=== PATIENT | female | born 1950 | race Caucasian/White ===

== ENCOUNTER 2020-04-28 09:11 | Outpatient (CLI) | payer MEDICARE, MEDICAID, SELFPAY ==
--- NOTE | ~2020-04-28 | PE_ITS ---
EXAMINATION: PET skull to mid thigh DATE: 04/28/2020 11:26 INDICATION: Pulmonary nodule TECHNIQUE: Blood glucose level was 96 mg/dL. 10.24 mCi of 18-fluorodeoxyglucose (18-FDG) was administ ered i.v. Low dose computed tomography (CT) images were acquired from the base of the brain to the pr oximal thighs for attenuation correction and anatomic localization. Positron emission tomography (PET ) images were acquired in the same distribution beginning 57 minutes after injection. The dose-length product (DLP) was 427.86 mGy-cm. COMPARISON: None FINDINGS: Head/neck: There is FDG uptake in the oral cavity and right vocal cord without suspicious CT correlat e. There is mild irregularity of the epiglottis with abnormal FDG uptake and SUV max of 10.5. No defi nite abnormal FDG uptake is identified. Chest: There is a 1.6 x 1.0 cm nodule in the medial aspect of the right upper lobe with abnormal FDG uptake and SUV max of 9.6. There is a 2.5 x 2.0 cm right suprahilar nodule with abnormal FDG uptake a nd SUV max of 15.6. There is bilateral hilar, right paratracheal, precarinal, subcarinal, right axill george, and right supraclavicular lymphadenopathy with abnormal FDG uptake. An approximately 6.3 x 2.0 c m mass of confluent subcarinal and left hilar lymph nodes is seen with an SUV max of 27 there is mild emphysema. There is no pleural effusion or pneumothorax. The heart size is normal. Abdomen/pelvis/proximal thighs: There is a 2.1 cm area of abnormal FDG uptake in the liver adjacent t o the gallbladder fossa with an SUV max of 6.0. Although no definite CT correlate is identified, this is a suspicious finding. Physiologic FDG activity is present in the bowel and urinary tract. The spl een, pancreas, gallbladder, and adrenal glands are normal. The kidneys are unremarkable. There is pratik cified atherosclerosis of the aorta and many of the other arteries. No pathologically enlarged abdomi nal or pelvic lymph nodes are identified. There is no free intraperitoneal gas or evidence of bowel o bstruction. Musculoskeletal: There is moderate cervical spondylosis, severe lumbar spondylosis, and mild thoracic spondylosis. No abnormal FDG uptake is identified. IMPRESSION: 1. Right suprahilar nodule with abnormal FDG uptake concerning for primary bronchogenic carcinoma. 2. Thoracic lymphadenopathy (detailed above), additional right upper lobe nodule, and FDG avid liver lesion are concerning for metastatic disease. 3. Mild irregularity of the epiglottis with abnormal FDG uptake of unclear significance. Would recomm end direct visualization. In addition would recommend visualization of the vocal cords as asymmetric FDG uptake is noted in the right vocal cord without definite CT correlate. Reviewed, dictated and finalized at location A. DYEING TENDER IMPRESSION: 1. Right suprahilar nodule with abnormal FDG uptake concerning for primary bron chogenic carcinoma. 2. Thoracic lymphadenopathy (detailed above), additional right upper lobe nodul e, and FDG avid liver lesion are concerning for metastatic disease. 3. Mild irregularity of the epiglottis with abnormal FDG uptake of unclear sign ificance. Would recommend direct visualization. In addition would recommend vis ualization of the vocal cords as asymmetric FDG uptake is noted in the right vo pratik cord without definite CT correlate.
[2020-04-28 09:32] LABS: Glucose Point of Care 96 (65-105)
== END 2020-04-28 09:12 | disposition home or self-care (01) ==
PROVIDERS: PCP Internal Medicine; Visit Provider Thoracic Surgery (Cardiothoracic Vascular Surgery)
DX: R91.1 Solitary pulmonary nodule (principal); R59.0 Localized enlarged lymph nodes; R91.8 Other nonspecific abnormal finding of lung field
CPT/HCPCS: 78815; 82948; A9552

== ENCOUNTER 2020-05-19 10:02 | Outpatient (CLI) | payer MEDICARE, MEDICAID, SELFPAY ==
--- NOTE | ~2020-05-19 | US_ITS ---
EXAMINATION: US biopsy lymph node DATE: 05/19/2020 11:38 INDICATION: Right supraclavicular lymphadenopathy. TECHNIQUE: The procedure including the risks, benefits, and alternatives was discussed with the patie nt. Risks discussed included bleeding and infection. The patient understood the risks and agreed to p roceed. The skin overlying the right supraclavicular region was prepped and draped in usual sterile f ashion. Anesthetic was administered with 1% lidocaine subcutaneously. An 18 gauge core biopsy needl e was then used to obtain 3 core biopsy specimens under continuous sonographic guidance. The entry si te was cleaned and dressed. There were no immediate complications. FINDINGS: Ultrasound images demonstrate the needle in a 10 x 14 mm right supraclavicular lymph node. IMPRESSION: 1. Ultrasound-guided core needle biopsy of a mildly enlarged right supraclavicular lymph node. Reviewed, dictated and finalized at location A. CE HELPER IMPRESSION: 1. Ultrasound-guided core needle biopsy of a mildly enlarged right supraclavicu lar lymph node.
== END 2020-05-19 10:03 | disposition home or self-care (01) ==
PROVIDERS: PCP Internal Medicine; Visit Provider Thoracic Surgery (Cardiothoracic Vascular Surgery)
DX: C77.0 Secondary and unspecified malignant neoplasm of lymph nodes of head, face and neck (principal)
CPT/HCPCS: 38505; 76942; 88305; 88342

== ENCOUNTER 2020-05-26 14:27 | Outpatient (CLI) | payer MEDICARE, MEDICAID, SELFPAY ==
--- NOTE | ~2020-05-26 | CT_ITS ---
EXAMINATION: CT soft tissue neck w con DATE: 05/26/2020 14:59 INDICATION: Squamous cell carcinoma of the epiglottis. TECHNIQUE: Computed tomography (CT) of the neck was performed with 75 mL Omnipaque-350 intravenous co ntrast. Automated exposure control and iterative reconstruction technique were employed. The dose-yvonne gth product was 460.51 mGy-cm. COMPARISON: PET CT 04/28/2020 FINDINGS: There is mild scarring at the lung apices. There is moderate emphysema. There is an 11 mm n odule in right lung upper lobe. There is right hilar lymphadenopathy measuring 2.4 x 1.9 cm. Mediasti nal lymphadenopathy is noted. There is right supraclavicular lymphadenopathy. There is thickening of the epiglottis. There are nodules in the thyroid measuring up to 13 mm, likely not clinically signifi cant. There is plaque in the proximal internal carotid arteries with 0% stenosis relative to normal a rtery lumen diameters. There is severe cervical spondylosis. The mastoid air cells are normal. There is a 3.6 x 1.4 cm mass of dense peripheral calcifications and central groundglass calcifications in t he frontal sinuses, likely fibrous dysplasia. IMPRESSION: 1. Thickening of the epiglottis with increased activity on the prior PET/CT suspicious for primary sq uamous cell carcinoma. 2. Nodule in right lung upper lobe, consistent with primary bronchogenic carcinoma versus metastatic disease. 3. Right hilar, mediastinal, and right supraclavicular lymphadenopathy, consistent with metastatic di sease. Biopsy of a right supraclavicular lymph node on 05/19/2020 demonstrated metastatic squamous rafi l carcinoma. Reviewed, dictated and finalized at location A. IMPRESSION: 1. Thickening of the epiglottis with increased activity on the prior PET/CT cha picious for primary squamous cell carcinoma. 2. Nodule in right lung upper lobe, consistent with primary bronchogenic carcin jen versus metastatic disease. 3. Right hilar, mediastinal, and right supraclavicular lymphadenopathy, consist ent with metastatic disease. Biopsy of a right supraclavicular lymph node on 01/2021 demonstrated metastatic squamous cell carcinoma.
[2020-05-26 14:52] LABS: Estimated Glomerular Filt Rate > 60
== END 2020-05-26 14:28 | disposition home or self-care (01) ==
DX: C32.1 Malignant neoplasm of supraglottis (principal)
CPT/HCPCS: 70491; Q9967

== ENCOUNTER 2020-05-28 10:30 | Outpatient (CLI) | payer MEDICARE, MEDICAID, SELFPAY ==
[2020-05-28 10:52] LABS: Basophils Absolute Auto 0.05 K/mm3 (0.00-0.10); Basophils Percent Auto 0.7 % (0.0-1.0); Eosinophils Absolute Auto 0.27 K/mm3 (0.02-0.50); Eosinophils Percent Auto 3.8 % (1.0-6.0); Hematocrit 42.1 % (35.0-42.0); Hemoglobin 14.2 g/dL (11.7-13.8); Immature Granulocyte Absolute 0.02 K/mm3 (0.00-0.00); Immature Granulocyte Percent A 0.3 % (0.0-0.0); Lymphocytes Absolute Auto 1.54 K/mm3 (1.10-4.50); Lymphocytes Percent Auto 21.9 % (18.0-42.0); Mean Corpuscular HGB Conc 33.7 g/dL (32.0-36.0); Mean Corpuscular Hemoglobin 30.2 pg (27.0-31.0); Mean Corpuscular Volume 89.6 fL (78.0-102.0); Mean Platelet Volume 11.1 fl (9.2-11.8); Monocytes Absolute Auto 0.55 K/mm3 (0.10-0.90); Monocytes Percent Auto 7.8 % (2.0-11.0); Neutrophils Absolute Auto 4.6 K/mm3 (1.7-7.2); Neutrophils Percent Auto 65.5 % (50.0-70.0); Platelet Count Result 246 K/mm3 (150-420); Red Cell Distribution Width 12.9 % (11.6-14.4)
[2020-05-28 11:49] LABS: Alanine Aminotransferase 28 U/L (14-59); Albumin Level 3.7 g/dL (3.4-5.0); Alkaline Phosphatase 83 U/L (46-116); Anion Gap 11 mmol/L (8-16); Aspartate Amino Transferase 20 U/L (15-37); Bilirubin,Total 0.4 mg/dL (0.00-1.00); Blood Urea Nitrogen 15 mg/dL (7-18); Calcium 9.8 mg/dL (8.5-10.1); Carbon Dioxide 31 mmol/L (21-32); Chloride 97 mmol/L (98-108); Estimated Glomerular Filt Rate 51; Glucose 91 mg/dL (70-99); Osmolality Calculated 288 mOsm/kg (285-295); Potassium 4.3 mmol/L (3.5-5.1); Sodium 139 mmol/L (136-145); Total Protein 8.2 g/dL (6.4-8.2)
[2020-05-28 12:03] LABS: SARS-CoV-2 RNA PCR Negative
== END 2020-05-28 10:31 | disposition home or self-care (01) ==
LOC: CHSLAB 10:34
PROVIDERS: PCP Internal Medicine; Visit Provider Internal Medicine
DX: Z01.818 Encounter for other preprocedural examination (principal); Z20.822 Contact with and (suspected) exposure to COVID-19
CPT/HCPCS: 36415; 80053; 85025; C9803; U0003; U0005

== ENCOUNTER 2021-01-09 15:02 | Outpatient (CLI) | payer OTHER, SELFPAY ==
[2021-01-09 16:13] LABS: SARS-CoV-2 RNA PCR Negative (Negative)
== END 2021-01-09 15:03 | disposition home or self-care (01) ==
LOC: CHSLAB 15:08
PROVIDERS: PCP Internal Medicine; Visit Provider Internal Medicine
DX: Z20.822 Contact with and (suspected) exposure to COVID-19 (principal)
CPT/HCPCS: C9803; U0003; U0005

== ENCOUNTER 2021-02-03 12:51 | Outpatient (CLI) | payer OTHER, SELFPAY ==
--- NOTE | ~2021-02-03 | XR_ITS ---
XR chest 2V 02/03/2021 13:27 Indication: Dyspnea. Lung cancer. Cold. Shortness of breath. Procedure: 2 view chest Comparison: 07/11/2015 Findings: Portacatheter tip in the SVC. Heart size normal. No focal air space disease, pulmonary arvind a, pleural effusion or suspected pneumothorax. No acute osseous abnormality. There is apical pleural thickening/scarring. Impression: 1: No acute cardiopulmonary disease. Reviewed, dictated and finalized at location A. ICAL CYTOGENETICS DIRECTOR Impression: 1: No acute cardiopulmonary disease.
[2021-02-03 13:12] LABS: Basophils Absolute Auto 0.03 K/mm3 (0.00-0.10); Basophils Percent Auto 0.6 % (0.0-1.0); Eosinophils Absolute Auto 0.24 K/mm3 (0.02-0.50); Eosinophils Percent Auto 4.7 % (1.0-6.0); Hematocrit 31.9 % (35.0-42.0); Hemoglobin 10.8 g/dL (11.7-13.8); Immature Granulocyte Absolute 0.02 K/mm3 (0.00-0.00); Immature Granulocyte Percent A 0.4 % (0.0-0.0); Lymphocytes Absolute Auto 0.62 K/mm3 (1.10-4.50); Lymphocytes Percent Auto 12.2 % (18.0-42.0); Mean Corpuscular HGB Conc 33.9 g/dL (32.0-36.0); Mean Corpuscular Hemoglobin 31.1 pg (27.0-31.0); Mean Corpuscular Volume 91.9 fL (78.0-102.0); Mean Platelet Volume 10.4 fl (9.2-11.8); Monocytes Absolute Auto 0.59 K/mm3 (0.10-0.90); Monocytes Percent Auto 11.6 % (2.0-11.0); Neutrophils Absolute Auto 3.6 K/mm3 (1.7-7.2); Neutrophils Percent Auto 70.5 % (50.0-70.0); Platelet Count Result 184 K/mm3 (150-420); Red Blood Count 3.47 M/mm3 (4.20-5.40); Red Cell Distribution Width 12.2 % (11.6-14.4); White Blood Count 5.1 K/mm3 (4.8-10.8)
--- NOTE | 2021-02-03 13:25 | ECG_ITS ---
Measurements Intervals [place] Rate: 55 P: 82 IN: 168 QRS: 63 QRSD: 116 T: 62 QT: 422 QTc: 406 Interpretive Statements SINUS BRADYCARDIA INCOMPLETE LEFT BUNDLE BRANCH BLOCK DELAYED PRECORDIAL R/S TRANSITION BASELINE WANDER- I, II, III, AVR, AVL, AVF, V2-V3 ABNORMAL ECG Electronically Signed On 02-03-2021 14:38:20 POWERTRAIN ENGINEER by Mohamud Finney D.O.
[2021-02-03 13:45] LABS: Alanine Aminotransferase 12 U/L (14-59); Alkaline Phosphatase 67 U/L (46-116); Anion Gap 9 mmol/L (8-16); Aspartate Amino Transferase 10 U/L (15-37); Bilirubin,Total 0.3 mg/dL (0.00-1.00); Blood Urea Nitrogen 41 mg/dL (7-18); Calcium 9.2 mg/dL (8.5-10.1); Carbon Dioxide 28 mmol/L (21-32); Chloride 98 mmol/L (98-108); Estimated Glomerular Filt Rate 20; Glucose 94 mg/dL (70-99); NT Pro B Type Natriuretic Pept 1243 pg/mL (0-125); Osmolality Calculated 290 mOsm/kg (285-295); Potassium 3.7 mmol/L (3.5-5.1); Sodium 135 mmol/L (136-145); Total Protein 6.6 g/dL (6.4-8.2)
[2021-02-03 16:19] LABS: D Dimer 2.09 mg/L (0.19-0.50)
== END 2021-02-03 12:52 | disposition home or self-care (01) ==
PROVIDERS: PCP Internal Medicine; Visit Provider Internal Medicine
DX: R06.00 Dyspnea, unspecified (principal); C34.90 Malignant neoplasm of unspecified part of unspecified bronchus or lung; J44.9 Chronic obstructive pulmonary disease, unspecified
CPT/HCPCS: 71046; 80053; 83880; 85025; 85380; 93005